=== PATIENT | male | born 1995 | race Asian ===

== ENCOUNTER 2020-04-21 08:59 | Emergency (ER) | payer BC ==
[~2020-04-21] VITALS: Ht 177.8 cm; Wt 73.9 kg
[2020-04-21 09:08] VITALS: Ht 177.8 cm; Wt 73.9 kg
[2020-04-21 09:50] LABS: BASOPHIL % 0.7 % (0.2-1.5); PLATELET COUNT 203 x10^3mcL (152-348); RED CELL DISTRIBUTION WIDTH 12.6 % (12.1-16.2)
[2020-04-21 10:07] LABS: CALCIUM 9.4 mg/dL (8.5-10.1); CARBON DIOXIDE 27.9 mmol/L (21-32); CHLORIDE SERUM 98 mmol/L (98-107); CREATININE SERUM 1.1 mg/dL (0.7-1.3); GFR1 > 60 mL/min; GLUCOSE SERUM 137 mg/dL (74-106); POTASSIUM SERUM 3.7 mmol/L (3.5-5.1); SODIUM SERUM 138 mmol/L (136-145)
[2020-04-21 10:07] LABS: microscopic required? YES; urine erythrocyte 3+ (NEGATIVE)
[2020-04-21 10:09] LABS: ALBUMIN 4.7 g/dL (3.4-5.0); ALKALINE PHOSPHATASE 76 U/L (46-116); ALT/SGPT 29 U/L (16-63); AST/SGOT 22 U/L (15-37); BILIRUBIN TOTAL 0.9 mg/dL (0.20-1.00); LIPASE 59 IU/L (73-393)
[2020-04-21 11:24] VITALS: BP 111/63
== END 2020-04-21 11:24 | disposition home or self-care (01) ==
LOC: ED 08:59
PROVIDERS: Emergency Medicine
DX: N20.0 Calculus of kidney (principal)
CPT/HCPCS: J1885; J2270; J2405; J7030